=== PATIENT | male | born 1950 | race Caucasian/White ===

== ENCOUNTER 2017-07-07 06:00 | Emergency (ER) | END 2017-07-07 11:09 | disposition home or self-care (01) ==

== ENCOUNTER → 2017-10-30 11:53 | Day surgery (SDC) | END | disposition home or self-care (01) ==

== ENCOUNTER 2018-02-17 13:16 | Inpatient (IN) | END 2018-02-18 18:45 | disposition home or self-care (01) | DRG 419 ==

== ENCOUNTER 2018-04-16 07:20 | Day surgery (SDC) | payer MEDICARE, OTHER ==
[2018-04-16] VITALS (12 sets, daily range): BP systolic 120–151; BP diastolic 58–78; PULSE 54–70; RESP 10–21; Ht 167.6 cm; Wt 88.3 kg
[~2018-04-16] VITALS: Ht 167.6 cm; Wt 88.3 kg
--- NOTE | 2018-04-16 06:18 | HPN ---
Date/Time of Note Date/Time of Note DATE: 04/16/18 TIME: 06:17 Interval H&P Admission Note Pt. seen H&P reviewed: No system changes ALBERTO GRANADOS MD Apr 16, 2018 06:18
[~2018-04-16 07:20] MED LIST: AMLO-147 PO; AMOX1TAB10 PO; CEFAZOLIN 1 GM INJ ONE; CHOL500010 PO; DOCU-144 PO; DUTA0.5C PO; LISI10TA2 PO; TAMS0.4C2 PO
[2018-04-16] MEDS ORDERED: LORA10TA3 PO (08:21)
--- NOTE | 2018-04-16 08:53 | PREAC ---
Date/Time of Note Date/Time of Note DATE: 04/16/18 TIME: 08:52 Anesthesia Eval and Record Evaluation Time Pre-Procedure Interview DATE: 04/16/18 TIME: 08:52 Age 67 Sex male NPO: 8 hrs Preoperative diagnosis left inguinal hernia Planned procedure open inguinal hernia repair Past Medical History Past Medical History: Includes Cardio: HTN Renal: BPH, Other Surgery & Anesthesia Issues No known issue Meds Anticoagulation: No Beta Chiquita within 24 hr: No Reason Beta Chiquita not given: Pt. not on B-Chiquita Reported Medications Loratadine* (Loratadine*) 10 Mg Tablet, 10 MG PO DAILY, #30 TAB 04/16/18 Dutasteride* (Avodart*) 0.5 Mg Capsule, 0.5 MG PO DAILY, CAP 10/30/17 Tamsulosin Hcl* (Tamsulosin Hcl*) 0.4 Mg Cap.er.24h, 0.4 MG PO HS, CAP 10/30/17 Amlodipine Besylate* (Amlodipine Besylate*) 10 Mg Tablet, 10 MG PO QPM, #30 TAB 10/30/17 Lisinopril* (Lisinopril*) 10 Mg Tablet, 10 MG PO DAILY, #30 TAB 10/30/17 Discontinued Reported Medications Cholecalciferol (Vitamin D3) 5,000 Unit Tablet, 5000 UNIT PO DAILY, TAB 10/30/17 Discontinued Scripts Docusate Sodium* (Colace*) 100 Mg Capsule, 100 MG PO DAILY, #30 CAP Prov:EDMONDSON,RODO [employer] 02/18/18 Amoxicillin/Potassium Clav (Amox-Clav 875-125 mg Tablet) 875-125 mg Tab, 1 TAB PO BID, #20 TAB Prov:RODO EDMONDSON [employer] 02/18/18 Meds reviewed: Yes Allergies Coded Allergies: No Known Drug Allergies (Unverified Allergy, Unknown, 04/16/18) Allergies Reviewed: Yes Labs/Studies Labs Reviewed: Reviewed by anesthesiologist test: N/A Studies: ECG (sr), CXR (nl) Pre-procedure Exam Last vitals Vital Signs Date Temp Pulse Resp B/P (MAP) Pulse Ox O2 O2 Flow FiO2 Time Delivery Rate 04/16/18 97.2 54 16 151/78 97 Room Air 07:40 (102) Airway: Adequate mouth opening Mallampati: Mallampati I Teeth: Normal Lung: Normal Heart: Normal ASA Physical Status ASA physical status: 2 Emergency: None Planned Anesthetic General/MAC: ETT Nerve block: TAP (left) Planned Pain Management Single shot nerve block, Parenteral pain med Pre-operative Attestations Prior to commencing anesthesia and surgery, the patient was re-evaluated, there was verification of: *The patient's identity *The results of appropriate recent lab work and preoperative vital signs *The above evaluation not changing prior to induction *Anesthetic plan, risk benefits, alternative and complications discussed with patient/family; questions answered; patient/family understands, accepts and wishes to proceed. RYLIE YUAN MD Apr 16, 2018 08:53
[2018-04-16] MEDS ORDERED: METOCLOPRAMIDE 10 MG INJ ONE (08:57)
[2018-04-16] MEDS ORDERED: MIDAZOLAM 1 MG/ML 2 ML INJ ONE (08:57)
[2018-04-16] MEDS ORDERED: ROPIVACAINE 0.2% 20 ML VIAL ONE (08:59)
[2018-04-16] MEDS ORDERED: PROPOFOL 20 ML ONE (08:59)
[2018-04-16] MEDS ORDERED: ROCURONIUM 50 MG INJ ONE (08:59)
[2018-04-16] MEDS ORDERED: LABETALOL HCL 20MG INJ IV PRN (09:00)
[2018-04-16] MEDS ORDERED: HYDROmorphONE 1 MG/5 ML IV SYRINGE IV PRN ×3 (09:00)
[2018-04-16] MEDS ORDERED: ONDANSETRON 4 MG INJ IV PRN ×2 (09:00→10:30)
[2018-04-16] MEDS ORDERED: MEPERIDINE 25 MG INJ IV PRN (09:00)
[2018-04-16] MEDS ORDERED: DIPHENHYDRAMINE 50 MG INJ IV PRN (09:00)
[2018-04-16] MEDS ORDERED: OXYCODONE/ACETAMINOPHEN (5/325) TAB PO PRN ×4 (09:00→10:30)
[2018-04-16] MEDS ORDERED: hydrALAzine 20 MG INJ IV PRN (09:00)
[2018-04-16] MEDS ORDERED: FENTAnyl 50 MCG/ML VIAL ONE (09:03)
[2018-04-16] MEDS ORDERED: EPHEDrine SULFATE 50 MG/5 ML SYG ONE (09:22)
[2018-04-16] MEDS ORDERED: BUPIVACAINE 0.25% (MPF) 30 ML INJ ONE (09:26)
[2018-04-16] MEDS ORDERED: KETOROLAC 30 MG INJ ONE (09:58)
[2018-04-16] MEDS ORDERED: ONDANSETRON 4 MG INJ ONE (09:58)
--- NOTE | 2018-04-16 10:16 | OPR ---
Date/Time of Note Date/Time of Note DATE: 04/16/18 TIME: 10:12 Operative Report Procedure Date: Apr 16, 2018 Preoperative Diagnosis Left inguinal hernia without obstruction Postoperative Diagnosis Left inguinal hernia without obstruction (direct) Operation/Procedure Performed 1. Repair left inguinal hernia with extra large plug 2. Left ilioinguinal nerve block Surgeon Alberto Granados MD Chief Technician X Ray None Anesthesia Type: general Anesthesiologist: RYLIE YUAN MD Estimated Blood Loss: minimal Transfusion none Specimen None Grafts/Implants Extra large Bard PerFix plug Tubes/Drains None Complications none Pt Condition Post Procedure: stable Disposition: PACU Indications Symptomatic Procedure Description After satisfactory general anesthesia was achieved, the lower abdomen was prepped and draped in the usual fashion. A 5 cm transverse suprapubic left groin incision was made in the groin crease and carried down to the level of the external oblique. The external oblique was opened in the direction of its fibers. The cord was retracted and preserved. There was a very large direct hernia. This was dissected and reduced. The reduction was maintained by placement of an extra-large plug secured circumferentially to healthy fascia with interrupted 3-0 Vicryl suture. Next the flat portion of the mesh was anchored at the pubic tubercle with a 0 Novafil and then run approximating mesh to inguinal ligament laterally to beyond the internal ring. A second 0 Novafil was then run from pubic tubercle approximating conjoined tendon to mesh to beyond the internal ring. The mesh distal to the cord was reconstituted with a single suture of 2-0 Novafil awaiting a new internal ring of appropriate size. The cord and nerve were replaced beneath the external oblique which was then closed with a running 3-0 Vicryl. Stefano's fascia was closed with interrupted 3-0 Vicryl. Next a left ilioinguinal nerve block was performed. 10 cc of 0.25% plain Marcaine were injected into the fascia 1 cm medial and inferior to the left anterior iliac spine. 10 more cc of local anesthetic were injected directly into the skin and subcutaneous tissues. Skin was then closed with a subcuticular absorbable stapler. Sponge and needle counts were reported as correct x2. ALBERTO GRANADOS MD Apr 16, 2018 10:16
[2018-04-16] MEDS ORDERED: morphine 2 MG INJ IV PRN (10:30)
--- NOTE | 2018-04-16 10:41 | PAC ---
Date/Time of Note Date/Time of Note DATE: 04/16/18 TIME: 10:41 Post-Anesthesia Notes Post-Anesthesia Note Last documented vital signs Vital Signs Date Temp Pulse Resp B/P (MAP) Pulse Ox O2 O2 Flow FiO2 Time Delivery Rate 04/16/18 98.0 58 14 124/64 97 Room Air 10:33 (84) 04/16/18 2.0 10:23 04/16/18 98.1 10:09 Activity: WNL Respiratory function: WNL Cardiovascular function: WNL Mental status: Baseline Pain reasonably controlled: Yes Hydration appropriate: Yes Nausea/Vomiting absent: No RYLIE YUAN MD Apr 16, 2018 10:41
== END 2018-04-16 11:22 | disposition home or self-care (01) ==
LOC: SDS 07:20
PROVIDERS: ATTEND Surgery
DX: K40.90 Unilateral inguinal hernia, without obstruction or gangrene, not specified as recurrent (principal); I10 Essential (primary) hypertension; N40.0 Benign prostatic hyperplasia without lower urinary tract symptoms
CPT/HCPCS: 49505; J1885; J2250; J2405; J2765; J2795; J3010; C1781; J0690